=== PATIENT | male | born 1965 | race Caucasian/White ===

== ENCOUNTER 2017-07-11 20:48 | Emergency (ER) | payer MEDICARE, OTHER ==
[~2017-07-11] VITALS: Ht 175.3 cm; Wt 74.8 kg
[~2017-07-11 20:48] MED LIST: ALBU8.5H8 IH
--- NOTE | 2017-07-11 20:55 | NUR ---
Dr. Villalobos at bedside for MSE.
[2017-07-11] MEDS ORDERED: HALOPERIDOL LACTATE 5 MG/1 ML VIAL IM ONE (21:00)
[2017-07-11] MEDS ORDERED: diphenhydrAMINE 50 MG/1 ML VIAL IM ONE (21:00)
[2017-07-11] MEDS ORDERED: LORAZEPAM 2 MG/1 ML VIAL IM ONE (21:00)
--- NOTE | 2017-07-11 21:00 | NUR ---
Patient is a psych patient with history of bipolar, schizophrenia, and ptsd. Patient ambulated to ER with steady gait, stated suicidal ideation.
[2017-07-11] MEDS ORDERED: LORAZEPAM 2 MG/1 ML VIAL ONE (21:07)
[2017-07-11] MEDS ORDERED: diphenhydrAMINE 50 MG/1 ML VIAL ONE (21:07)
[2017-07-11] MEDS ORDERED: HALOPERIDOL LACTATE 5 MG/1 ML VIAL ONE (21:07)
[2017-07-11 21:30] LABS: BASOPHILS # (AUTO) 0.1 K/uL (0.0-8.0); BASOPHILS % (AUTO) 0.7 % (0.0-2.0); EOSINOPHILS % (AUTO) 0.5 % (0.0-7.0); HEMATOCRIT 40.3 % (36.7-47.1); HEMOGLOBIN 13.5 g/dL (12.5-16.3); LYMPHOCYTES # (AUTO) 1.6 K/uL (20.0-40.0); MEAN CORPUSCULAR HEMOGLOBIN 27.4 uug (23.8-33.4); MEAN CORPUSCULAR HGB CONC 34 g/dL (32.5-36.3); MEAN CORPUSCULAR VOLUME 81.5 fL (73.0-96.2); MONOCYTES # (AUTO) 0.6 K/uL (2.0-10.0); MONOCYTES % (AUTO) 6.3 % (0.0-11.0); NEUTROPHILS # (AUTO) 6.7 K/uL (1.8-8.9); NEUTROPHILS % (AUTO) 74.5 % (38.5-71.5); PLATELET COUNT (AUTO) 224 K/uL (152-348); RED BLOOD CELL COUNT(AUTO) 4.94 MIL/uL (4.06-5.63); WHITE BLOOD COUNT (AUTO) 8.9 K/uL (3.6-10.2)
[2017-07-11 21:38] LABS: ALANINE AMINOTRANSFERASE 31 U/L (16-63); ALKALINE PHOSPHATASE 93 U/L (50-136); ASPARTATE AMINOTRANSFERASE 52 U/L (15-37); BILIRUBIN,DIRECT 0.1 mg/dL (0.0-0.2); BILIRUBIN,TOTAL 0.6 mg/dL (0.2-1.0); CARBON DIOXIDE 27 mmol/L (21-32); CHLORIDE 99 mmol/L (98-107); CREATININE 0.8 mg/dL (0.6-1.3); GLUCOSE 95 mg/dL (74-106); POTASSIUM 4.1 mmol/L (3.5-5.1); TOTAL PROTEIN, SERUM 7.9 g/dL (6.4-8.2); UREA NITROGEN, BLOOD 14 mg/dL (7-18)
[2017-07-11 21:39] LABS: ACETAMINOPHEN < 2.0 ug/mL (10-30)
[2017-07-11 21:46] LABS: ETHANOL < 3 MG/DL (0-0)
--- NOTE | 2017-07-11 22:50 | NUR ---
Collected patient's urine, sent to lab.
[2017-07-11 23:05] LABS: *BILIRUBIN,URIN NEGATIVE (NEGATIVE); *BLOOD, URINE 1+ (NEGATIVE); *CLARITY,URINE CLEAR (CLEAR); *COLOR,URINE YELLOW (YELLOW); *KETONES,URINE TRACE (NEGATIVE); *PROTEIN,URINE NEGATIVE (NEGATIVE); *UROBILINOGEN,URINE 0.2 E.U./dl (NORMAL); LEUKOCYTE ESTERASE ,URINE TRACE (NEGATIVE); NITRITE, URINE NEGATIVE (NEGATIVE); UGLUCOSE NEGATIVE (NEGATIVE)
[2017-07-11 23:13] LABS: BACTERIA,URINE NONE SEEN /HPF (NONE SEEN); SQUAMOUS EPITHELIAL CELL,UR FEW /HPF (NONE SEEN); TRANSITIONAL EPI CELLS,URINE FEW /LPF (NONE SEEN); WBC,URINE 0-3 /HPF (0-3)
[2017-07-11 23:16] LABS: *AMPHETAMINE, URINE POSITIVE (NEGATIVE); *BARBITURATE, URINE NEGATIVE (NEGATIVE); *CANNABINOID, URINE POSITIVE (NEGATIVE); *COCCAINE, URINE NEGATIVE (NEGATIVE); *OPIATE, URINE POSITIVE (NEGATIVE); *PHENCYCLIDINE SCREEN,URINE NEGATIVE (NEGATIVE)
--- NOTE | 2017-07-12 00:15 | NUR ---
Herb Esteves LCSW at bedside for psych evaluation.
--- NOTE | 2017-07-12 00:23 | NUR ---
Patient currently denying SI , patient states he made those statement so he can have a place to sleep for a few hours. Herb Esteves [employer] at bedside during patient statements. Patient is cleared by [employer] WORKER for dischrage.
--- NOTE | 2017-07-12 00:37 | NUR ---
Patient noted with 1 large container Marijuana, 7 pills of Cantrall 10/325, 4 pills of 5/325 percocet, 1 large black sex toy with packaging " [employer] Prostate Massage Dildo" , 1 camo backpack, 1 pair of aguilar pants, 1 aguilar sweatshirt, 1 can of bud light beer, 1 glass pipe, 1 paper bag full of womens underwear, 1 plastic bottle of " Ass Fuck Sex Lube". All belongings are returned to the patient at time of dischage. patient continues to deny SI/HI/AH/VH at this time. Patient is cooperative and AAOx4 at time of discharge. Primary RN at bedside for patient AVS review and discharge instructions. No peripheral IV was placed during this patients ER stay.
[2017-07-12 00:49] VITALS: BP 137/80
== END 2017-07-12 00:35 | disposition home or self-care (01) ==
LOC: ER 20:49
DX: F31.9 Bipolar disorder, unspecified (principal); J45.909 Unspecified asthma, uncomplicated; I25.10 Atherosclerotic heart disease of native coronary artery without angina pectoris; F15.10 Other stimulant abuse, uncomplicated; Z79.899 Other long term (current) drug therapy
CPT/HCPCS: 36415; 70030-TC; 80307; 85025; 86592; 93005; A4663; G0480; G0480-TC; J1200; J1630; J2060